=== PATIENT | female | born 1980 | race Caucasian/White ===

== ENCOUNTER 2019-02-20 13:13 | Emergency (ER) | payer OTHER ==
[~2019-02-20] VITALS: Ht 172.7 cm; Wt 135.2 kg
[2019-02-20 13:20] VITALS: Ht 172.7 cm; Wt 135.2 kg
[2019-02-20 14:17] VITALS: BP 154/89
== END 2019-02-20 14:17 | disposition home or self-care (01) ==
LOC: ED 13:13
DX: I10 Essential (primary) hypertension (principal); R42 Dizziness and giddiness; Z90.49 Acquired absence of other specified parts of digestive tract; Z90.89 Acquired absence of other organs